=== PATIENT | male | born 1965 | race Two or more races ===

== ENCOUNTER 2024-09-23 23:13 | Inpatient (IN) | payer OTHER ==
[~2024-09-23] VITALS: Ht 180.3 cm; Wt 80.7 kg
[2024-09-23 23:48] LABS: BASOPHILS # (AUTO) 0.1 K/uL (0.0-0.2); BASOPHILS % (AUTO) 0.5 % (0.0-2.0); EOSINOPHILS % (AUTO) 0.4 % (0.0-6.0); HEMATOCRIT 27 % (39-51); HEMOGLOBIN 8.5 g/dL (13.5-17.5); LYMPHOCYTES # (AUTO) 1.2 K/uL (0.8-4.8); LYMPHOCYTES % (AUTO) 9.9 % (20.0-44.0); MEAN CORPUSCULAR HEMOGLOBIN 29 PG (26.0-33.0); MEAN CORPUSCULAR HGB CONC 32 g/dl (31.0-36.0); MEAN CORPUSCULAR VOLUME 90 fL (80-96); MONOCYTES # (AUTO) 0.7 K/uL (0.1-1.30); MONOCYTES % (AUTO) 6.4 % (2.0-12.0); NEUTROPHILS # (AUTO) 9.7 K/uL (1.8-8.9); NEUTROPHILS % (AUTO) 82.8 % (43.0-81.0); PLATELET COUNT (AUTO) 155 K/uL (150-450); RED BLOOD CELL COUNT(AUTO) 2.97 MIL/uL (4.5-6.0); RED CELL DISTRIBUTION WIDTH 20.8 % (11.5-15.0); WHITE BLOOD COUNT (AUTO) 11.7 K/uL (4.3-11.0)
[2024-09-23 23:59] LABS: INR 1.62 (0.91-1.10); PARTIAL THROMBOPLASTIN TIME 43.2 SEC (24.3-34.3); PROTHROMBIN TIME 16.6 SECS (9.2-11.1)
[2024-09-24 00:10] LABS: ALANINE AMINOTRANSFERASE 9 U/L (12-78); ALBUMIN 1.7 g/dL (3.4-5.0); ALKALINE PHOSPHATASE 142 U/L (46-116); ASPARTATE AMINOTRANSFERASE 12 U/L (15-37); BILIRUBIN,DIRECT 0.1 mg/dL (0.0-0.2); BILIRUBIN,TOTAL 0.3 mg/dL (0.2-1.0); CALCIUM, SERUM 6.1 mg/dL (8.5-10.1); CARBON DIOXIDE 29 mmol/L (21-32); CHLORIDE 98 mmol/L (98-107); CREATININE 1.1 mg/dL (0.6-1.3); GLUCOSE 84 mg/dL (74-106); NT-PRO BNP 3366 pg/mL (0-125); SODIUM SERUM 138 mmol/L (136-145); TOTAL PROTEIN, SERUM 6.7 g/dL (6.4-8.2); UREA NITROGEN, BLOOD 14 mg/dL (7-18)
[2024-09-24 00:16] LABS: POTASSIUM 2.6 mmol/L (3.5-5.1)
[2024-09-24 00:23] LABS: APPEARANCE,URINE CLOUDY (CLEAR); BILIRUBIN,URINE NEGATIVE (NEGATIVE); BLOOD, URINE 2+ Ery/uL (NEGATIVE); COLOR,URINE YELLOW (YELLOW); KETONES,URINE NEGATIVE (NEGATIVE); LEUKOCYTE ESTERASE ,URINE 2+ (NEGATIVE); NITRITE, URINE NEGATIVE (NEGATIVE); PROTEIN,URINE 2+ mg/dl (NEGATIVE); UGLUCOSE NEGATIVE (NEGATIVE); UROBILINOGEN,URINE 0.2 EU/dL (0.2)
[2024-09-24] MEDS ORDERED: POTASSIUM CHLORIDE 20 MEQ POWDER PACKET ONE (00:24)
[2024-09-24] MEDS ORDERED: IV NS 0.9% 250 ML IV ONE (00:27)
[2024-09-24] MEDS ORDERED: IOHEXOL-350 100 ML VIAL IV ONE (00:27)
[2024-09-24] MEDS ORDERED: CT SWABBABLE VALVE TRANS SET 1 EA INFUS.SET MC ONE (00:27)
[2024-09-24] MEDS: POTASSIUM CHLORIDE 20 MEQ POWDER PACKET PO ONE (00:30)
[2024-09-24] MEDS ORDERED: PIPERACI/TAZO 3.375GM/D5W 50ML PB IV ONE ×2 (00:32→05:39)
[2024-09-24] MEDS ORDERED: VANCOMYCIN 1 GM /D5W 250 ML PB IV ONE (00:32)
[2024-09-24] MEDS ORDERED: AZITHROMYCIN 500 MG VIAL ONE (00:32)
[2024-09-24] MEDS: IV NS 0.9% 1,000 ML BAG IV ONE (00:48)
[2024-09-24] MEDS: VANCOMYCIN 1 GM in IV D5W 250 ML IV ONE (00:49)
[2024-09-24] MEDS: AZITHROMYCIN 500 MG in IV D5W 250 ML IV ONE (00:49)
[2024-09-24] MEDS: PIPERACILLIN /TAZOBACTAM 3.375 G in IV D5W 50 ML IV ONE ×3 (00:53→06:00)
[2024-09-24] MEDS ORDERED: Calcium Gluconate 0.465 MEQ/ML VIAL IV ONE (00:58)
[2024-09-24 01:12] LABS: LACTIC ACID 2.1 mmol/L (0.4-2.0)
[2024-09-24] MEDS: Calcium Gluconate 1GM/10ML 4.65 MEQ in IV NS 0.9% 100 ML IV ONE (01:14)
[2024-09-24] MEDS ORDERED: ONDANSETRON HCL/PF 4 MG/2 ML VIAL IVP PRN (01:30)
[2024-09-24] MEDS ORDERED: MAG HYDROX/AL HYDROX/SIMETH 30 ML UDC PO PRN (01:30)
[2024-09-24] MEDS ORDERED: ZOLPIDEM TARTRATE 5 MG TABLET PO PRN (01:30)
[2024-09-24] MEDS ORDERED: MAGNESIUM HYDROXIDE 30 ML UDC PO PRN (01:30)
[2024-09-24] MEDS ORDERED: Z GUARD REMEDY 4 OZ OINT TP PRN (01:30)
[2024-09-24 01:31] LABS: ADD URINE CULTURE YES; BACTERIA,URINE 1+ /HPF (None Seen); MUCUS,URINE Moderate /LPF (None Seen); SQUAMOUS EPITHELIAL CELL,UR None Seen /HPF (None Seen); YEAST,URINE Many /HPF (None Seen)
[2024-09-24] MEDS: ACETAMINOPHEN 325 MG TABLET PO PRN (03:35)
[2024-09-24 03:59] LABS: BASOPHILS % (AUTO) 0.4 % (0.0-2.0); EOSINOPHILS % (AUTO) 0.4 % (0.0-6.0); HEMATOCRIT 27 % (39-51); HEMOGLOBIN 8.6 g/dL (13.5-17.5); LYMPHOCYTES # (AUTO) 1.3 K/uL (0.8-4.8); LYMPHOCYTES % (AUTO) 11.5 % (20.0-44.0); MEAN CORPUSCULAR HEMOGLOBIN 29 PG (26.0-33.0); MEAN CORPUSCULAR HGB CONC 32 g/dl (31.0-36.0); MEAN CORPUSCULAR VOLUME 91 fL (80-96); MONOCYTES # (AUTO) 0.6 K/uL (0.1-1.30); MONOCYTES % (AUTO) 5.9 % (2.0-12.0); NEUTROPHILS % (AUTO) 81.8 % (43.0-81.0); PLATELET COUNT (AUTO) 153 K/uL (150-450); RED BLOOD CELL COUNT(AUTO) 2.93 MIL/uL (4.5-6.0); RED CELL DISTRIBUTION WIDTH 21.4 % (11.5-15.0)
[2024-09-24] MEDS ORDERED: METO50TA16 PO (04:14)
[2024-09-24] MEDS ORDERED: OXYC5TAB3 PO (04:14)
[2024-09-24] MEDS ORDERED: PANT40TA49 PO (04:14)
[2024-09-24] MEDS ORDERED: MORP30TA PO (04:14)
[2024-09-24] MEDS ORDERED: INSU100I30 SQ (04:14)
[2024-09-24] MEDS ORDERED: HYDR-4077 PO (04:14)
[2024-09-24] MEDS ORDERED: ENOX40DI SQ (04:14)
[2024-09-24] MEDS ORDERED: METR-147 PO (04:14)
[2024-09-24] MEDS ORDERED: LEVO750T46 PO (04:14)
[2024-09-24] MEDS ORDERED: INSU100V39 SQ (04:14)
[2024-09-24] MEDS ORDERED: MAGN400T52 PO (04:14)
[2024-09-24] MEDS ORDERED: DILT60TA35 PO (04:14)
[2024-09-24 04:28] LABS: ALBUMIN 1.6 g/dL (3.4-5.0); BILIRUBIN,TOTAL 0.3 mg/dL (0.2-1.0); CREATININE 1.1 mg/dL (0.6-1.3); PHOSPHORUS 3.3 mg/dL (2.5-4.9); TOTAL PROTEIN, SERUM 6.4 g/dL (6.4-8.2)
[2024-09-24 05:06] VITALS: BP 118/92; TEMP 99.1; O2SAT 95
[2024-09-24 05:12] LABS: MAGNESIUM 0.4 mg/dL (1.8-2.4)
[2024-09-24] MEDS: POTASSIUM CHLORIDE 20 MEQ TAB.PRT.SR PO ONE (05:45)
[2024-09-24] MEDS: Magnesium 1 GM/2 ML VIAL IV ONE (06:36)
[2024-09-24] MEDS: Magnesium 1GM/D5W 100ML PREMIX 400 ML IV ONE (07:10)
[2024-09-24 08:35] VITALS: BP 132/98; TEMP 99.5; O2SAT 97
[2024-09-24] MEDS: Magnesium 1GM/D5W 100ML PREMIX PIGGYBACK IV SCH (09:11)
[2024-09-24] MEDS: oxyCODONE IR immediate release 5 MG TABLET PO PRN (11:04)
[2024-09-24 12:00] VITALS: BP 128/87; TEMP 99.1; O2SAT 97
[2024-09-24] MEDS: MORPHINE SULFATE SR 30 MG TABLET.SA PO SCH (12:30)
[2024-09-24] MEDS ORDERED: MORPHINE SULFATE SR 15 MG TABLET.SA PO SCH ×2 (12:30)
[2024-09-24] MEDS ORDERED: VANCOMYCIN HCL 1.25 GM in IV D5W 250 ML IV SCH (13:00)
[2024-09-24] MEDS: PIPERACILLIN /TAZOBACTAM 3.375 G in IV D5W 100 ML IV SCH (14:24)
[2024-09-24] MEDS ORDERED: PETROLATUM,WHITE PACKET 5 GM PACKET TP PRN (15:00)
[2024-09-24 16:10] VITALS: BP 128/87; TEMP 99.1; O2SAT 96
[2024-09-24] MEDS: hydrALAZINE HCL 50 MG TABLET PO SCH (16:50)
[2024-09-24] MEDS: METOPROLOL TARTRATE 50 MG TABLET PO SCH (16:50)
[2024-09-24] MEDS: APIXABAN 5 MG TABLET PO SCH (16:52)
[2024-09-24 20:00] VITALS: BP 118/84; TEMP 99; O2SAT 96
[2024-09-24] MEDS: MORPHINE SULFATE SR 15 MG TABLET.SA PO SCH (20:35)
[2024-09-24] MEDS: DILTIAZEM HCL 30 MG TABLET PO SCH (21:31)
[2024-09-24] MEDS: INSULIN GLARGINE, 100 UNIT/ML CARTRIDGE SQ SCH (21:32)
[2024-09-25] MEDS: oxyCODONE IR immediate release 5 MG TABLET PO PRN (00:44)
[2024-09-25 04:00] VITALS: BP 119/82; TEMP 99.3; O2SAT 96
[2024-09-25 06:48] LABS: BASOPHILS % (AUTO) 0.1 % (0.0-2.0); EOSINOPHILS % (AUTO) 0.5 % (0.0-6.0); HEMATOCRIT 24 % (39-51); HEMOGLOBIN 7.9 g/dL (13.5-17.5); LYMPHOCYTES # (AUTO) 1.2 K/uL (0.8-4.8); LYMPHOCYTES % (AUTO) 11.6 % (20.0-44.0); MEAN CORPUSCULAR HEMOGLOBIN 30 PG (26.0-33.0); MEAN CORPUSCULAR HGB CONC 33 g/dl (31.0-36.0); MEAN CORPUSCULAR VOLUME 90 fL (80-96); MONOCYTES # (AUTO) 0.6 K/uL (0.1-1.30); MONOCYTES % (AUTO) 5.6 % (2.0-12.0); NEUTROPHILS # (AUTO) 8.8 K/uL (1.8-8.9); NEUTROPHILS % (AUTO) 82.2 % (43.0-81.0); PLATELET COUNT (AUTO) 135 K/uL (150-450); RED BLOOD CELL COUNT(AUTO) 2.67 MIL/uL (4.5-6.0); WHITE BLOOD COUNT (AUTO) 10.7 K/uL (4.3-11.0)
[2024-09-25 07:00] VITALS: BP 130/69; TEMP 98.6; O2SAT 98
[2024-09-25 07:21] LABS: CALCIUM, SERUM 6.1 mg/dL (8.5-10.1); CREATININE 0.8 mg/dL (0.6-1.3); MAGNESIUM 1.4 mg/dL (1.8-2.4); PHOSPHORUS 3.2 mg/dL (2.5-4.9); POTASSIUM 2.9 mmol/L (3.5-5.1)
[2024-09-25] MEDS: PANTOPRAZOLE 40 MG TABLET.DR PO SCH (08:27)
[2024-09-25] MEDS: CLOTRIMAZOLE 1% 15 GM TUBE TP SCH (09:26)
[2024-09-25] MEDS: POTASSIUM CHLORIDE 20 MEQ TAB.PRT.SR PO ONE (09:48)
[2024-09-25] MEDS: MAGNESIUM OXIDE 400 MG TABLET PO ONE (09:53)
[2024-09-25 11:30] VITALS: BP 108/75; TEMP 97.5; O2SAT 97
[2024-09-25] MEDS ORDERED: ENOXAPARIN SODIUM 80 MG/0.8 ML DISP.SYRIN SQ SCH (15:30)
[2024-09-25 16:00] VITALS: BP 104/72; TEMP 97.4; O2SAT 97
[2024-09-25 17:25] LABS: APPEARANCE,URINE CLEAR (CLEAR); BILIRUBIN,URINE NEGATIVE (NEGATIVE); BLOOD, URINE 1+ Ery/uL (NEGATIVE); COLOR,URINE YELLOW (YELLOW); KETONES,URINE NEGATIVE (NEGATIVE); LEUKOCYTE ESTERASE ,URINE 1+ (NEGATIVE); NITRITE, URINE NEGATIVE (NEGATIVE); PROTEIN,URINE 1+ mg/dl (NEGATIVE); UGLUCOSE NEGATIVE (NEGATIVE); UROBILINOGEN,URINE 0.2 EU/dL (0.2)
[2024-09-25 18:51] LABS: ADD URINE CULTURE YES; BACTERIA,URINE 2+ /HPF (None Seen); SQUAMOUS EPITHELIAL CELL,UR Few /HPF (None Seen)
[2024-09-25 18:52] LABS: YEAST,URINE Many /HPF (None Seen)
[2024-09-25 20:00] VITALS: BP 122/87; TEMP 99; O2SAT 94
[2024-09-25] MEDS: ENOXAPARIN SODIUM 80 MG/0.8 ML DISP.SYRIN SQ SCH (22:09)
[2024-09-26] VITALS: BP 109/78; TEMP 98.6; O2SAT 94
[2024-09-26 04:00] VITALS: BP 105/75; TEMP 98.6; O2SAT 95
[2024-09-26 07:00] LABS: CREATININE 0.9 mg/dL (0.6-1.3); POTASSIUM 3.2 mmol/L (3.5-5.1)
[2024-09-26 07:02] LABS: BASOPHILS % (AUTO) 0.2 % (0.0-2.0); EOSINOPHILS # (AUTO) 0.1 K/uL (0.0-0.7); EOSINOPHILS % (AUTO) 0.6 % (0.0-6.0); HEMATOCRIT 23 % (39-51); HEMOGLOBIN 7.8 g/dL (13.5-17.5); LYMPHOCYTES % (AUTO) 10.3 % (20.0-44.0); MEAN CORPUSCULAR HEMOGLOBIN 30 PG (26.0-33.0); MEAN CORPUSCULAR HGB CONC 33 g/dl (31.0-36.0); MEAN CORPUSCULAR VOLUME 90 fL (80-96); MONOCYTES # (AUTO) 0.6 K/uL (0.1-1.30); MONOCYTES % (AUTO) 6.4 % (2.0-12.0); NEUTROPHILS # (AUTO) 8.3 K/uL (1.8-8.9); NEUTROPHILS % (AUTO) 82.5 % (43.0-81.0); PLATELET COUNT (AUTO) 139 K/uL (150-450); RED BLOOD CELL COUNT(AUTO) 2.59 MIL/uL (4.5-6.0); RED CELL DISTRIBUTION WIDTH 20.9 % (11.5-15.0)
[2024-09-26 07:04] LABS: CALCIUM, SERUM 6.3 mg/dL (8.5-10.1)
[2024-09-26 07:39] LABS: MAGNESIUM 1.2 mg/dL (1.8-2.4)
[2024-09-26 08:00] VITALS: BP 110/72; TEMP 100; O2SAT 96
[2024-09-26] MEDS: MAGNESIUM OXIDE 400 MG TABLET PO ONE (09:45)
[2024-09-26] MEDS: POTASSIUM CHLORIDE 20 MEQ TAB.PRT.SR PO SCH (09:46)
[2024-09-26 12:20] VITALS: BP 105/76; TEMP 99.3; O2SAT 98
[2024-09-26 16:00] VITALS: BP 112/81; TEMP 99.3; O2SAT 97
[2024-09-26] MEDS ORDERED: FLUC100T8 PO (16:20)
[2024-09-26 20:00] VITALS: BP 121/81; TEMP 99.3; O2SAT 96
[2024-09-27] VITALS: BP 122/92; TEMP 97.7; O2SAT 94
[2024-09-27 04:00] VITALS: BP 113/90; TEMP 97.9; O2SAT 98
[2024-09-27 07:30] VITALS: BP 112/82; TEMP 99; O2SAT 95
[2024-09-27 09:02] VITALS: BP 112/86
[2024-09-27 09:51] LABS: BASOPHILS % (AUTO) 0.4 % (0.0-2.0); EOSINOPHILS # (AUTO) 0.1 K/uL (0.0-0.7); HEMATOCRIT 27 % (39-51); HEMOGLOBIN 8.9 g/dL (13.5-17.5); LYMPHOCYTES # (AUTO) 0.9 K/uL (0.8-4.8); LYMPHOCYTES % (AUTO) 16.1 % (20.0-44.0); MEAN CORPUSCULAR HEMOGLOBIN 29 PG (26.0-33.0); MEAN CORPUSCULAR HGB CONC 33 g/dl (31.0-36.0); MEAN CORPUSCULAR VOLUME 90 fL (80-96); MONOCYTES # (AUTO) 0.5 K/uL (0.1-1.30); MONOCYTES % (AUTO) 8.7 % (2.0-12.0); NEUTROPHILS # (AUTO) 4.4 K/uL (1.8-8.9); NEUTROPHILS % (AUTO) 73.8 % (43.0-81.0); PLATELET COUNT (AUTO) 171 K/uL (150-450); RED BLOOD CELL COUNT(AUTO) 3.03 MIL/uL (4.5-6.0); RED CELL DISTRIBUTION WIDTH 20.4 % (11.5-15.0); WHITE BLOOD COUNT (AUTO) 5.9 K/uL (4.3-11.0)
[2024-09-27 10:18] LABS: CALCIUM, SERUM 6.7 mg/dL (8.5-10.1); CREATININE 0.9 mg/dL (0.6-1.3); MAGNESIUM 1.2 mg/dL (1.8-2.4); PHOSPHORUS 3.4 mg/dL (2.5-4.9); POTASSIUM 3.8 mmol/L (3.5-5.1)
[2024-09-27] MEDS ORDERED: FLUCONAZOLE (100 MG) 100 MG TABLET PO SCH (12:00)
[2024-09-27] MEDS ORDERED: MAGNESIUM OXIDE 400 MG TABLET PO ONE (13:30)
== END 2024-09-27 12:40 | disposition home health service (06) | DRG 720 ==
LOC: ER 23:15 → TELE 09-24 01:05 → MED 09-27 12:05
PROVIDERS: ATTEND Nurse Practitioner Acute Care
DX: A41.9 Sepsis, unspecified organism (principal); J90 Pleural effusion, not elsewhere classified; J15.9 Unspecified bacterial pneumonia; L89.156 Pressure-induced deep tissue damage of sacral region; C78.6 Secondary malignant neoplasm of retroperitoneum and peritoneum; J44.0 Chronic obstructive pulmonary disease with (acute) lower respiratory infection; D64.9 Anemia, unspecified; E11.51 Type 2 diabetes mellitus with diabetic peripheral angiopathy without gangrene; I11.0 Hypertensive heart disease with heart failure; I50.32 Chronic diastolic (congestive) heart failure; E78.5 Hyperlipidemia, unspecified; E87.6 Hypokalemia; N39.0 Urinary tract infection, site not specified; I25.10 Atherosclerotic heart disease of native coronary artery without angina pectoris; J44.9 Chronic obstructive pulmonary disease, unspecified; J98.11 Atelectasis; Z86.718 Personal history of other venous thrombosis and embolism; Z87.442 Personal history of urinary calculi; Z90.49 Acquired absence of other specified parts of digestive tract; Z95.5 Presence of coronary angioplasty implant and graft; Z85.51 Personal history of malignant neoplasm of bladder; R53.1 Weakness; Z93.3 Colostomy status; Z93.6 Other artificial openings of urinary tract status; L98.8 Other specified disorders of the skin and subcutaneous tissue
CPT/HCPCS: 36415; 71045-TC; 80048-TC; 80053-TC; 80076-TC; 80202-TC; 81001; 82962-TC; 83605-TC; 83735-TC; 83880; 84100-TC; 84484-TC; 85025-TC; 85730-TC; 86850-TC; 87040-TC; 87081-TC; 87086-TC; 93307-TC; 97110-TC; 97112-TC; 97530-TC; 97535-TC; A4217; A4223; A6253; A6403; G0378; J0456; J0610; J1650; J1815; J2543; J3370; J3475; J7030; J7040; J7050; J7060; Q9967